=== PATIENT | male | born 1980 | race Caucasian/White ===

== ENCOUNTER → 2016-10-04 | Outpatient (CLI) | payer BC ==
--- NOTE | 2016-10-04 12:03 | XR ---
EXAMINATION TYPE: XR lumbosacral spine min 4V DATE OF EXAM: 10/04/2016 11:42 AM COMPARISON: NONE HISTORY: 36-year-old male left-sided sciatica and bilateral hip pain FINDINGS: There is rightward truncal shift. 5 lumbar type vertebral bodies. Subtle posterior fusion defect of S 1. No right-sided pars defect. A left oblique view was not provided. Vertebral body heights and disc interspaces are maintained. Alignment is also maintained. No signific ant degenerative change seen. There is bilateral nephrolithiasis measuring up to 4 mm on the right 6 mm on the left. IMPRESSION: 1. Rightward truncal shift could be positional, due to muscle spasm, or could reflect a scoliosis hig her up. Clinically correlate. 2. No vertebral compression collapse or malalignment. No significant degenerative change seen radiogr aphically. 3. Numerous bilateral renal calculi measuring up to 6 mm.
--- NOTE | 2016-10-04 12:07 | XR ---
EXAMINATION TYPE: AP view pelvis and 2 views each hip DATE OF EXAM: 10/04/2016 11:42 AM COMPARISON: NONE HISTORY: 36-year-old male with bilateral hip pain TECHNIQUE: FINDINGS: SI joints appear symmetric and intact. There appears to be some mild degenerative change at the pubic symphysis. Hips appear symmetric and intact. Neither tiny os acetabuli or some subtle degenerative l abral ossification superiorly on either side. Joint space is maintained. No acute fracture or disloca tion. Phleboliths in the left hemipelvis. IMPRESSION: 1. No acute osseous abnormality seen. 2. Either normal variant tiny os acetabuli or subtle degenerative labral ossification superiorly on b oth sides. Correlate with physical exam findings for any symptoms of femoral acetabular impingement s yndrome.
== END | disposition home or self-care (01) ==
LOC: RADXRMAIN 11:20
PROVIDERS: ATTEND Family Medicine
DX: M54.32 Sciatica, left side (principal); M25.551 Pain in right hip; M25.552 Pain in left hip
CPT/HCPCS: 72110; 73521

== ENCOUNTER → 2020-06-23 | Outpatient (CLI) | payer BC ==
--- NOTE | 2020-06-24 08:17 | MR ---
EXAMINATION TYPE: MR lumbar spine wo/w con DATE OF EXAM: 06/23/2020 COMPARISON: Lumbar spine x-ray October 04, 2016. HISTORY: Lumbar ago with bilateral sciatica per order. Low back pain for years into the left lower ex tremity per patient. TECHNIQUE: Multiplanar, multisequence images of the lumbar spine is performed without and with IV contrast, util izing 7 mL intravenous Gadavist FINDINGS: Sagittal images of the lumbar spine show vertebral body heights and alignment to appear sat isfactory. Disc desiccation noted L4-L5 and L5-S1 levels. Disc space heights are maintained. Annular tear noted L5-S1 level. The conus medullaris is normal in position and signal ending superior L1 leve l. The bone marrow signal intensity is within normal limits. Axial images T12-L1, L1-L2, L2-L3, and L3-L4 levels all to appear within normal limits. Axial images at the L4-L5 level show mild/moderate facet degenerative change bilaterally. There is mi ld broad disc bulge with moderate broad-based posterior disc protrusion effacing anterior thecal sac. There is mild bilateral inferior neural foraminal narrowing. Axial images at the L5-S1 level show mild/moderate facet degenerative changes bilaterally. There is r ight paracentral disc protrusion minimally effacing anterior thecal sac. Mild bilateral anterior infe rior neural foraminal narrowing noted. Prominent bilateral renal pelvises without calyceal dilatation consistent with extrarenal pelvises. P araspinal muscle bulk is preserved. IMPRESSION: Degenerative changes lower lumbar spine greatest at L4-L5 level as detailed above.
== END | disposition home or self-care (01) ==
LOC: RADMRIMAIN 15:51
PROVIDERS: ATTEND Family Medicine
DX: M47.26 Other spondylosis with radiculopathy, lumbar region (principal)
CPT/HCPCS: 72158; A9585

== ENCOUNTER 2023-01-07 14:28 | Emergency (ER) | payer BC ==
[2023-01-07 14:45] VITALS: BP 168/90; PULSE 65; RESP 18; TEMP 98.7
[2023-01-07 15:46] LABS: Appearance,Urine Clear (Clear); Bilirubin,Urine Negative (Negative); Blood,Urine Small (Negative); Color,Urine Light Yellow; Glucose,Urine (UA) Negative (Negative); Ketones,Urine Negative (Negative); Leukocyte Esterase,Urine Negative (Negative); Mucus,Urine Rare /hpf; Nitrite,Urine Negative (Negative); PH, Urine 7.5 (5.0-8.0); Protein,Urine Negative (Negative); RBC,Urine 3 /hpf (0-5); Specific Gravity,Urine 1.007 (1.001-1.035); Urobilinogen,Urine <2.0 mg/dL (<2.0); WBC,Urine 1 /hpf (0-5)
[2023-01-07] MEDS ORDERED: SODIUM CHLORIDE 0.9% 1,000 ML IV STA (17:37)
[2023-01-07] MEDS ORDERED: ONDANSETRON 4 MG/2 ML VIAL IVP STA (17:37)
[2023-01-07] MEDS ORDERED: KETOROLAC 15 MG/ML 1 ML VIAL IVP STA (17:37)
--- NOTE | 2023-01-07 17:43 | ED ---
Abdominal Pain HPI - General Chief Complaint: Abdominal Pain Stated Complaint: kidney stone Time Seen by Provider: 01/07/23 16:20 Source: patient, RN notes reviewed, old records reviewed Mode of arrival: EMS Limitations: no limitations - History of Present Illness Initial Comments: This is a 42-year-old male to the emergency department for evaluation. Patient presents today for evaluation of left leg pain is severe left flank pain left flank pain that started yesterday left flank pain that is persistent worse today. History of kidney stones feels a prior kidney stones MD Complaint: abdominal pain, flank pain (Left-sided) -: days(s) Location: LLQ, L flank Radiation: LLQ Migration to: suprapubic Severity: severe Severity scale (1-10): 10 Quality: stabbing, sharp Consistency: constant Improves With: nothing Worsens With: nothing Associated Symptoms: nausea, vomiting Treatments Prior to Arrival: other (0) - Related Data Previous Rx's Medication Instructions Recorded Tamsulosin [Flomax] 0.4 mg PO DAILY #7 cap 01/07/23 Allergies Allergy/AdvReac Type Severity Reaction Status Date / Time Sulfa (Sulfonamide Allergy Rash/Hives Verified 01/07/23 17:43 Antibiotics) Review of Systems ROS Statement: Those systems with pertinent positive or pertinent negative responses have been documented in the HPI. ROS Other: All systems not noted in ROS Statement are negative. Past Medical History Past Medical History: No Reported History Additional Past Surgical History / Comment(s): cyst removal, facial r econstruction, undecended testicle at 3 years old, vasectomy. Past Psychological History: No Psychological Hx Reported Smoking Status: Never smoker Past Alcohol Use History: Occasional Past Drug Use History: None Reported General Exam Limitations: no limitations General appearance: alert, in no apparent distress, anxious Head exam: Present: atraumatic, normocephalic, normal inspection Eye exam: Present: normal appearance, PERRL, EOMI. Absent: scleral icterus, conjunctival injection, periorbital swelling ENT exam: Present: normal exam, mucous membranes moist Neck exam: Present: normal inspection. Absent: tenderness, meningismus, lymphadenopathy Respiratory exam: Present: normal lung sounds bilaterally. Absent: respiratory distress, wheezes, rales, rhonchi, stridor Cardiovascular Exam: Present: regular rate, normal rhythm, normal heart sounds. Absent: systolic murmur, diastolic murmur, rubs, gallop, clicks GI/Abdominal exam: Present: soft, normal bowel sounds. Absent: distended, tenderness, guarding, rebound, rigid Extremities exam: Present: normal inspection, full ROM, normal capillary refill. Absent: tenderness, pedal edema, joint swelling, calf tenderness Back exam: Present: normal inspection Neurological exam: Present: alert, oriented X3, CN II-XII intact Psychiatric exam: Present: normal affect, normal mood Skin exam: Present: warm, dry, intact, normal color. Absent: rash Course Vital Signs 01/07/23 14:43 Temperature 98.7 F Pulse Rate 65 Respiratory 18 Rate Blood Pressure 168/90 O2 Sat by Pulse 100 Oximetry - Reevaluation(s) Reevaluation #1: 01/07/23 19:50 Medical records reviewed Reevaluation #2: 01/07/23 19:50 Patient symptoms are improved Reevaluation #3: 01/07/23 19:50 Patient informed of results and questions answered Reevaluation #4: 01/07/23 19:50 Was pt. sent in by a medical professional or institution? @ -no Did you speak to anyone other than the patient for history? @ -no Did you review nursing and triage notes? @ -agree Were old charts reviewed? @ -agree Differential Diagnosis? @ -no EKG interpreted by me (3pts min.)? @ -no X-rays interpreted by me (1pt min.)? @ -no CT interpreted by me (1pt min.)? @ -no U/S interpreted by me (1pt. min.)? @ on] What testing was considered but not performed? (CT, X-rays, U/S, labs)? Why? @ -no What meds were considered but not given? Why? @ -no Did you discuss the management of the patient with other professionals? @ -no Did you reconcile home meds? @ -no Was smoking cessation discussed for >3mins.? @ -no Was critical care preformed (if so, how long)? @ -no Were there social determinants of health that impacted care today? How? (Homelessness, low income, unemployed, alcoholism, drug addiction, transportation, low edu. Level, literacy, decrease access to med. care, retirement, rehab)? @ -no Was there de-escalation of care discussed even if they declined? (Discuss DNR or withdrawal of care, Hospice)? @ -no What co-morbidities impacted this encounter? (DM, HTN, Smoking, COPD, CAD, Cancer, CVA, Hep., AIDS, mental health diagnosis, sleep apnea, morbid obesity)? @ -no Was patient admitted / discharged? @ -no Undiagnosed new problem with uncertain prognosis? @ -no Drug Therapy requiring intensive monitoring for toxicity (Heparin, Nitro, Insulin, Cardizem)? @ -no Were any procedures done? @ -[none] Diagnosis/symptom? @ -[default] Acute, or Chronic, or Acute on Chronic? @ -no Uncomplicated (without systemic symptoms) or Complicated (systemic symptoms)? @ -uncomplicates Side effects of treatment? @ -no Exacerbation, Progression, or Severe Exacerbation] @ -no Poses a threat to life or bodily function? @ -no Medical Decision Making - Medical Decision Making 42 male to the emergency department for evaluation of kidney stones left-sided kidney stone 0 stones 2. Patient given a follow-up with urology and pain control - Lab Data Result diagrams: 01/07/23 19:18 01/07/23 17:45 Lab Results 01/07/23 01/07/23 01/07/23 Range/Units 15:03 17:45 19:18 WBC 8.3 (3.8-10.6) k/uL RBC 4.68 (4.30-5.90) m/uL Hgb 14.5 (13.0-17.5) gm/dL Hct 42.4 (39.0-53.0) % MCV 90.6 (80.0-100.0) fL MCH 31.0 (25.0-35.0) pg MCHC 34.2 (31.0-37.0) g/dL RDW 12.4 (11.5-15.5) % Plt Count 185 (150-450) k/uL MPV 8.4 Neutrophils % 78 % Lymphocytes % 15 % Monocytes % 5 % Eosinophils % 1 % Basophils % 0 % Neutrophils # 6.4 (1.3-7.7) k/uL Lymphocytes # 1.2 (1.0-4.8) k/uL Monocytes # 0.4 (0-1.0) k/uL Eosinophils # 0.1 (0-0.7) k/uL Basophils # 0.0 (0-0.2) k/uL Sodium 137 (137-145) mmol/L Potassium 4.0 (3.5-5.1) mmol/L Chloride 100 (98-107) mmol/L Carbon Dioxide 30 (22-30) mmol/L Anion Gap 7 mmol/L BUN 13 (9-20) mg/dL Creatinine 0.91 (0.66-1.25) mg/dL Est GFR (CKD-EPI)AfAm >90 (>60 ml/min/1.73 sqM) Est GFR (CKD-EPI)NonAf >90 (>60 ml/min/1.73 sqM) Glucose 102 H (74-99) mg/dL Calcium 9.1 (8.4-10.2) mg/dL Total Bilirubin 0.6 (0.2-1.3) mg/dL AST 30 (17-59) U/L ALT 29 (4-49) U/L Alkaline Phosphatase 79 (38-126) U/L Total Protein 7.0 (6.3-8.2) g/dL Albumin 4.5 (3.5-5.0) g/dL Urine Color Light Yellow Urine Appearance Clear (Clear) Urine pH 7.5 (5.0-8.0) Ur Specific [place] 1.007 (1.001-1.035) Urine Protein Negative (Negative) Urine Glucose (UA) Negative (Negative) Urine Ketones Negative (Negative) Urine Blood Small H (Negative) Urine Nitrite Negative (Negative) Urine Bilirubin Negative (Negative) Urine Urobilinogen <2.0 (<2.0) mg/dL Ur Leukocyte Esterase Negative (Negative) Urine RBC 3 (0-5) /hpf Urine WBC 1 (0-5) /hpf Urine Mucus Rare H (None) /hpf - Radiology Data Radiology results: report reviewed (CT of the abdomen and pelvis is positive for kidney stones 2), image reviewed Disposition Clinical Impression: Ureteral calculus, left, Left renal stone Disposition: HOME SELF-CARE Condition: Good Prescriptions: Tamsulosin [Flomax] 0.4 mg PO DAILY #7 cap Is patient prescribed a controlled substance at d/c from ED?: No Referrals: Chadwick Oconnor MD [STAFF PHYSICIAN] - 1-2 days Time of Disposition: 19:45
[2023-01-07] MEDS ORDERED: MORPHINE SULFATE 4 MG/ML SYRINGE IVP STA (17:48)
[2023-01-07 18:24] LABS: ALT 29 U/L (4-49); AST 30 U/L (17-59); African American GFR (CKD) >90 (>60 ml/min/1.73 sqM); Albumin 4.5 g/dL (3.5-5.0); Alkaline Phosphatase 79 U/L (38-126); Anion Gap 7 mmol/L; Blood Urea Nitrogen 13 mg/dL (9-20); Calcium 9.1 mg/dL (8.4-10.2); Carbon Dioxide 30 mmol/L (22-30); Chloride 100 mmol/L (98-107); Glucose 102 mg/dL (74-99); Non-African American GFR(CKD) >90 (>60 ml/min/1.73 sqM); Sodium 137 mmol/L (137-145); Total Bilirubin 0.6 mg/dL (0.2-1.3)
--- NOTE | 2023-01-07 19:16 | CT ---
EXAMINATION TYPE: CT abdomen pelvis wo con DATE OF EXAM: 01/07/2023 COMPARISON: 01/18/11 HISTORY: lower abdominal pain. hx of kidney stones CT DLP: 622.6 mGycm Examination of the solid and hollow viscera is limited given the lack of contrast. FINDINGS: LUNG BASES: No evidence for nodule. No evidence for infiltrate. LIVER/GB: The gallbladder is unremarkable. No space-occupying hepatic lesion. PANCREAS: No pancreatic mass identified. No inflammatory process seen. SPLEEN: No evidence for splenomegaly. No intrasplenic lesions seen. ADRENALS: No adrenal nodules identified. No evidence for thickening. KIDNEYS: Mild/moderate left-sided hydronephrosis secondary to 2 distal left ureteral calculi measurin g 5 mm and 4 mm respectively. Approximately calculi left kidney measuring up to 7 mm. Right kidney de monstrates 7 benign calculi measuring up to 6 mm. No obstructive uropathy on the right urinary bladde r is free of the wall thickening or intraluminal calculus. BOWEL: Appendix has a normal appearance. No evidence of bowel obstruction. No inflammatory process. Lymph nodes: No evidence for adenopathy greater than 1 cm. Abdominal aorta: Atheromatous changes seen. No evidence for aneurysm. Genital organs: No significant abnormality. Other: No significant abnormality. IMPRESSION: Mild/moderate left-sided hydronephrosis secondary to 2 distal left ureteral calculi measuring 5 mm an d 4 mm respectively.
[2023-01-07 19:28] LABS: Basophils % (A) 0 %; Eosinophils # (A) 0.1 k/uL (0-0.7); Eosinophils % (A) 1 %; HCT 42.4 % (39.0-53.0); HGB 14.5 gm/dL (13.0-17.5); Lymphocytes # (A) 1.2 k/uL (1.0-4.8); Lymphocytes % (A) 15 %; MCHC 34.2 g/dL (31.0-37.0); MCV 90.6 fL (80.0-100.0); Mean Platelet Volume 8.4; Monocytes # (A) 0.4 k/uL (0-1.0); Monocytes % (A) 5 %; Neutrophils # (A) 6.4 k/uL (1.3-7.7); Neutrophils % (A) 78 %; Platelet Count 185 k/uL (150-450); RBC 4.68 m/uL (4.30-5.90); RDW 12.4 % (11.5-15.5); WBC 8.3 k/uL (3.8-10.6)
[2023-01-07] MEDS ORDERED: ACET/COD 300 MG/30 MG STARTER PACK 6 TAB BTL PO STA (19:40)
[2023-01-07] MEDS ORDERED: TAMSULOSIN 0.4 MG CAP.ER.24H PO STA (19:40)
[2023-01-07] MEDS ORDERED: IBUPROFEN 600 MG STARTER PACK 4 TAB BTL PO STA (19:40)
[2023-01-07] MEDS ORDERED: ONDANSETRON 4 MG ODT STARTER PACK 2 TAB BTL PO STA (19:40)
[2023-01-07] MEDS ORDERED: traMADol 50 MG STARTER PACK 3 TAB BTL PO STA (19:40)
== END 2023-01-07 20:42 | disposition home or self-care (01) ==
LOC: EC 14:28
DX: N13.2 Hydronephrosis with renal and ureteral calculous obstruction (principal); Z88.1 Allergy status to other antibiotic agents; Z88.2 Allergy status to sulfonamides
CPT/HCPCS: 36415; 80053; 85025; 81001; 74176; 99284; 96374; 96375 ×2; 96361; J2270; J2405; J1885; S0119

== ENCOUNTER → 2024-01-16 | Outpatient (CLI) | payer BC ==
[2024-01-16 16:20] LABS: Calcium 9.7 mg/dL (8.7-10.3); Uric Acid 6.5 mg/dL (3.7-8.7)
== END | disposition home or self-care (01) ==
LOC: LABWHC1 08:39
PROVIDERS: ATTEND Family Medicine
DX: Z00.00 Encounter for general adult medical examination without abnormal findings (principal)
CPT/HCPCS: 36415; 82310; 83970; 84550

== ENCOUNTER → 2024-01-16 | Outpatient (CLI) | payer BC ==
--- NOTE | 2024-01-16 09:04 | XR ---
EXAMINATION TYPE: XR KUB DATE OF EXAM: 01/16/2024 8:39 AM CLINICAL INDICATION:Male, 43 years old with history of N20.0 calculus; COMPARISON: None. TECHNIQUE: One radiographic view of the abdomen was obtained. FINDINGS: The bowel gas pattern is nonspecific without dilated loops of small or large bowel. There i s no evidence for organomegaly or pneumoperitoneum. The osseous structures are intact. No abnormal calcifications are present. Fecal material and gas are demonstrated throughout the colon and rectum. IMPRESSION: Nonspecific bowel gas pattern without radiographic evidence for acute process.
--- NOTE | 2024-01-16 09:07 | XR ---
EXAMINATION TYPE: XR lumbar spine 2 or 3V DATE OF EXAM: 01/16/2024 8:39 AM CLINICAL INDICATION:Male, 43 years old with history of [id number] Lumbago; [facility] COMPARISON: 10/04/2016 TECHNIQUE: XR lumbar spine 2 or 3V - Frontal, lateral and coned in L5-S1 lateral views of the spine. FINDINGS: No evidence of any acute osseous pathology. No evidence of loss of vertebral body height i s seen. There is normal alignment of the lumbar vertebral bodies. Minimal scattered disc space narrow ing. Multilevel marginal osteophyte formation throughout the visualized spine. There is facet joint a rthropathy throughout the spine. Scattered at least mild neural foraminal stenosis. IMPRESSION: 1. No acute fracture. 2. Mild multilevel disc degeneration.
== END | disposition home or self-care (01) ==
LOC: RADXRMAIN 08:16
PROVIDERS: ATTEND Urology
DX: M51.17 Intervertebral disc disorders with radiculopathy, lumbosacral region (principal); N20.0 Calculus of kidney
CPT/HCPCS: 72100; 74018

== ENCOUNTER → 2024-02-28 | Outpatient (CLI) | payer BC ==
--- NOTE | 2024-02-28 10:16 | XR ---
EXAMINATION TYPE: XR chest 2V DATE OF EXAM: 02/28/2024 COMPARISON: 11/02/2015 INDICATION: Dyspnea TECHNIQUE: Frontal and lateral views of the chest are obtained. FINDINGS: The heart size is normal. The pulmonary vasculature is normal. The lungs are clear. IMPRESSION: 1. No acute pulmonary process.
== END | disposition home or self-care (01) ==
LOC: LABWHC1 08:52
PROVIDERS: ATTEND Family Medicine
DX: R06.09 Other forms of dyspnea (principal)
CPT/HCPCS: 36415; 71046; 93005

== ENCOUNTER → 2024-03-25 | Outpatient (CLI) | payer BC ==
--- NOTE | 2024-03-25 12:16 | CA ---
Transthoracic Echo Report Name: Nic Olmos Age: 43 Gender: M : 1980 Exam Date: 03/25/2024 11:32 Exam Location: [place] [facility] Ht (in): 73 Wt (lb): 180 Ordering Physician: Sudheer Vega MD Attending/Referring Phys: Maribeth Wakefield [facility] Weaving Inspector Eli Wilde RDCS Procedure CPT: Indications: R91.31 ABNORMAL EKG Cardiac Hx: Technical Quality: Good Contrast 1: Total Dose (mL): Contrast 2: Total Dose (mL): MEASUREMENTS (Male / Female) Normal Values 2D ECHO LV Diastolic Diameter PLAX 5.1 cm 4.2 - 5.9 / 3.9 - 5.3 cm LV Systolic Diameter PLAX 3.0 cm IVS Diastolic Thickness 1.3 cm 0.6 - 1.0 / 0.6 - 0.9 cm LVPW Diastolic Thickness 1.2 cm 0.6 - 1.0 / 0.6 - 0.9 cm LV Relative Wall Thickness 0.5 RV Internal Dim ED PLAX 2.0 cm LA Systolic Diameter LX 3.0 cm 3.0 - 4.0 / 2.7 - 3.8 cm LV Diastolic Volume MOD BP 82.8 cm??? 67 - 155 / 56 - 104 cm??? LV Systolic Volume MOD BP 32.2 cm??? 22 - 58 / 19 - 49 cm??? LV Ejection Fraction MOD BP 61.1 % >= 55 % LV Cardiac Index MOD BP 1847.1 cm???/min???m??? LV Diastolic Volume MOD 4C 87.9 cm??? LV Systolic Volume MOD 4C 31.3 cm??? LV Ejection Fraction MOD 4C 64.4 % LV Cardiac Index MOD 4C 2068.0 cm???/min???m??? LV Diastolic Length 4C 7.9 cm LV Systolic Length 4C 6.0 cm LV Diastolic Volume MOD 2C 76.0 cm??? LV Systolic Volume MOD 2C 30.1 cm??? LV Ejection Fraction MOD 2C 60.5 % LV Cardiac Index MOD 2C 1679.8 cm???/min???m??? LV Diastolic Length 2C 8.2 cm LV Systolic Length 2C 6.7 cm LA Volume 53.4 cm??? 18 - 58 / 22 - 52 cm??? LA Volume Index 26.0 cm???/m??? 16 - 28 cm???/m??? M-MODE Aortic Root Diameter MM 3.4 cm LA Systolic Diameter MM 3.0 cm LA Ao Ratio MM 0.9 AV Cusp Separation MM 2.0 cm DOPPLER AV Peak Velocity 130.7 cm/s AV Peak Gradient 6.8 mmHg MV Area PHT 3.1 cm??? Mitral E Point Velocity 72.9 cm/s Mitral A Point Velocity 64.2 cm/s Mitral E to A Ratio 1.1 MV Deceleration Time 241.7 ms FINDINGS Left Ventricle Left ventricular ejection fraction is estimated at 60-65%. Mildly increased septal wall thickness. Normal left ventricular wall motion. No obvious regional wall motion abnormalities. Left ventricular cavity size normal. Right Ventricle Normal right ventricular size and function. Right ventricular systolic pressure within normal limits. Right Atrium Normal right atrial size. Left Atrium Normal left atrial size. Mitral Valve Structurally normal mitral valve. Mild mitral regurgitation. No mitral stenosis. Aortic Valve Trileaflet aortic valve. No aortic valve stenosis or regurgitation. Tricuspid Valve Structurally normal tricuspid valve. Trace tricuspid regurgitation. No tricuspid stenosis. Pulmonic Valve Structurally normal pulmonic valve. Trace pulmonic regurgitation. Pericardium No pericardial or pleural effusion. Aorta Normal size aortic root and proximal ascending aorta. CONCLUSIONS Left ventricular ejection fraction is estimated at 60-65%. No obvious regional wall motion abnormalities. Mild concentric LV Mild mitral regurgitation Normal RV size and systolic function. Previewed by: Dr Vinh Ruffin (Electronically Signed) Final Date: 25 March 2024 12:15
== END | disposition home or self-care (01) ==
LOC: RADECHMAIN 11:17
PROVIDERS: ATTEND Family Medicine
DX: I34.0 Nonrheumatic mitral (valve) insufficiency (principal); R94.31 Abnormal electrocardiogram [ECG] [EKG]
CPT/HCPCS: 93306

== ENCOUNTER → 2024-12-28 | Outpatient (CLI) | payer BC ==
--- NOTE | 2024-12-28 09:42 | US ---
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 Indirect Doppler criteria was utilized. FINDINGS: EXAM MEASUREMENTS: RIGHT: Peak Systolic Velocity (PSV) cm/sec ----- Right CCA: 89.7 ----- Right ICA: 95.0 ----- Right ECA: 81.8 ICA/CCA ratio: 1.06 RIGHT: End Diastole cm/sec ----- Right CCA: 30.9 ----- Right ICA: 27.9 ----- Right ECA: 18.8 LEFT: Peak Systolic Velocity (PSV) cm/sec ----- Left CCA: 84.4 ----- Left ICA: 70.3 ----- Left ECA: 68.9 ICA/CCA ratio: 0.83 LEFT: End Diastole cm/sec ----- Left CCA: 30.1 ----- Left ICA: 32.5 ----- Left ECA: 17.8 VERTEBRALS (direction of flow): Right Vertebral: Antegrade Left Vertebral: Antegrade Rhythm: Normal [employer] TE[employer] REPAIRER NOTES: No plaque seen. No elevated velocities. Color Doppler imaging shows patency with blood flow throughout the carotid artery. Spectral waveforms are within normal limits. IMPRESSION: Right: No hemodynamically significant stenosis. Left: No hemodynamically significant stenosis. Criteria for Assigning % of Stenosis / Diameter reduction (Estimation based on the indirect measurements of the internal carotid artery velocities (ICA PSV). 1. Normal (no stenosis)=ICA PSV < 180 cm/s: ratio < 2.0: ICA EDV<40 cm/s. 2. Less than 50% stenosis=ICA PSV < 180 cm/s: ratio < 2.0: ICA EDV<40 cm/s. 3. 50 to 69% stenosis=ICA PSV of 180 to 230 cm/s: ration 2.0 ? 4.0: ICA EDV 40-100 cm/s. PSV 125-180 cm/sec and ICA/CCA PSV Ratio ? 2.0 is also consistent with 50-69% stenosis 4. Greater than 70% stenosis to near occlusion= ICA PSV > 230 cm/s: ratio > 4.0: ICA EDV > 100 cm/s. 5. Near occlusion= ICA PSV velocities may be low or undetectable: variable ratio and ICA EDV. 6. Total occlusion=unable to detect flow. [facility], , 12/28/2024 9:40 AM
== END | disposition home or self-care (01) ==
LOC: RADUSWWP 08:33
PROVIDERS: ATTEND Internal Medicine
DX: I65.23 Occlusion and stenosis of bilateral carotid arteries (principal)
CPT/HCPCS: 93880

== ENCOUNTER → 2025-04-01 | Outpatient (CLI) | payer BC ==
--- NOTE | 2025-04-01 09:29 | XR ---
EXAMINATION TYPE: XR KUB DATE OF EXAM: 04/01/2025 9:23 AM COMPARISON: None. CLINICAL INDICATION: Male, 44 years old with history of N20.0 CALCULUS OF KIDNEY, TECHNIQUE: Single view of the abdomen. FINDINGS: Right renal calculi: Numerous right-sided calculi seen measuring up to 6 mm. Right ureteral calculi: None Visualized. Left renal calculi: Numerous left-sided renal calculi noted measuring up to 6 mm. Left ureteral calculi: None Visualized. Pelvic calcifications: Yes Bowel gas pattern is unremarkable. No free air. No mass effects. IMPRESSION: 1. Bilateral nephrolithiasis. [facility], , 04/01/2025 9:27 AM
== END | disposition home or self-care (01) ==
LOC: RADXRMAIN 08:31
PROVIDERS: ATTEND Urology
DX: N20.0 Calculus of kidney (principal)
CPT/HCPCS: 74018